=== PATIENT | male | born 1955 | race Caucasian/White ===

== ENCOUNTER 2016-11-09 10:17 | Inpatient (IN) | payer MEDICAID ==
[~2016-11-09] VITALS: Ht 177.8 cm; Wt 91.4 kg
[~2016-11-09 10:17] MED LIST: ALLO300T PO; AMLO10TA2 PO; ASPI-621 PO; ATOR80TA75 PO; BLOOD THINNER; ETOMIDATE 20 MG/10 ML ONE; HYDR-3138 PO; METO25TA35 PO; MIDAZOLAM 1 MG/ML, 5ML ONE; PROB500T22 PO; PROPOFOL 10 MG/ML, 100ML IV ONE; SERT50TA5 PO; SUCCINYLCHOLINE 20 MG/ML, 10ML ONE; TICA90TA PO
[2016-11-09] MEDS ORDERED: SODIUM CHLORIDE 0.9% 1,000ML IVBOLUS ONE (10:30)
[2016-11-09] MEDS ORDERED: VANCOMYCIN PER PHARMACY MC ONE (10:30)
[2016-11-09] MEDS ORDERED: [UNRECOGNIZED DRUG - REMARK] MC SCH (10:30)
[2016-11-09] MEDS ORDERED: FENTANYL PF 100 MCG/2ML ONE (10:52)
[2016-11-09] MEDS ORDERED: PIPERACILLIN/TAZO/PMX 4.5GM 100 ML IVPB ONE (11:00)
[2016-11-09] MEDS ORDERED: PROPOFOL 100 ML IV PRN (11:00)
[2016-11-09] MEDS ORDERED: FENTANYL PF 100 MCG/2ML IV ONE (11:00)
[2016-11-09] MEDS: MIDAZOLAM 1 MG/ML, 2ML IVPush PRN ×2 (11:22→12:00)
[2016-11-09] MEDS ORDERED: NOREPINEPHRINE 4 MG in SODIUM CHLORIDE 0.9% 246 ML IV PRN ×2 (11:30→17:00)
[2016-11-09] MEDS ORDERED: ACETAMINOPHEN 650 MG SUPP PR ONE (11:30)
[2016-11-09] MEDS ORDERED: ACETAMINOPHEN 650 MG SUPP ONE (11:48)
[2016-11-09 12:00] LABS: ABG COLLECTION SITE RIGHT RADIAL; COLLATERAL CIRCULATION TESTING NORMAL
[2016-11-09] MEDS ORDERED: PHARMACOKINETIC CONSULTATION MC ONE (12:00)
[2016-11-09] MEDS ORDERED: methylPREDNISolone SOD SUCC 125 MG/2 ML IVPush SCH (12:00)
[2016-11-09] MEDS ORDERED: PHARMACOKINETIC MONITORING MC PRN (12:00)
[2016-11-09 12:01] LABS: FIO2 100 %
[2016-11-09] MEDS ORDERED: VANCOMYCIN 1,600 MG in SODIUM CHLORIDE 0.9% 250 ML IV ONE (12:30)
[2016-11-09 12:37] LABS: ASPARTATE AMINO TRANSFERASE 64 U/L (15-37); BLOOD UREA NITROGEN 44 mg/dL (7-18)
[2016-11-09 12:42] LABS: IS PT STATUS REG ER OR PRE ER? YES
[2016-11-09] MEDS ORDERED: SENNA/DOCUSATE TABLET NG PRN (13:00)
[2016-11-09] MEDS ORDERED: LIDOCAINE-MPF 1%, 2ML ENDO PRN (13:00)
[2016-11-09] MEDS ORDERED: LACTULOSE 20 GM/30 ML UDC NG PRN (13:00)
[2016-11-09] MEDS ORDERED: BISACODYL 10 MG SUPP PR PRN ×2 (13:00→14:00)
[2016-11-09] MEDS ORDERED: SENNOSIDES 8.8 MG/5 ML ORAL SOL NG PRN (13:00)
[2016-11-09] MEDS ORDERED: PHARMACY MAY ADJ FOR RENAL FX MC SCH (13:00)
[2016-11-09 13:12] LABS: DIFF TOTAL CELLS COUNTED 100 CELL DIFF
[2016-11-09 13:26] LABS: ANISOCYTOSIS 2+; VERIFY COUNTS? YES
[2016-11-09 13:27] LABS: POLYCHROMASIA 1+
[2016-11-09 13:28] LABS: LARGE PLATELETS 1+; MICROCYTOSIS 1+
[2016-11-09 13:29] LABS: OVALOCYTES 1+; POIKILOCYTOSIS 1+
[2016-11-09] MEDS ORDERED: VASOPRESSIN 100 UNIT in SODIUM CHLORIDE 0.9% 495 ML IV PRN (14:00)
[2016-11-09] MEDS ORDERED: VANCOMYCIN PER PHARMACY MC PRN (14:00)
[2016-11-09] MEDS ORDERED: POLYETHYLENE GLYCOL 17 GM PACKET PO PRN (14:00)
[2016-11-09 14:14] LABS: ABG COLLECTION SITE RIGHT RADIAL; COLLATERAL CIRCULATION TESTING NORMAL
[2016-11-09 14:15] LABS: FIO2 100 %
[2016-11-09] MEDS: SODIUM CHLORIDE 0.9% 1,000 ML IV SCH (14:45)
[2016-11-09] MEDS: FAMOTIDINE 20 MG/2 ML IV SCH (14:45)
[2016-11-09] MEDS: PROPOFOL 100 ML IV PRN ×2 (14:45→17:44)
[2016-11-09] MEDS ORDERED: PIPERACILLIN/TAZO/PMX 3.375GM 50 ML IV SCH ×2 (15:00→17:00)
[2016-11-09] MEDS: FENTANYL PF 2,500 MCG in SODIUM CHLORIDE 0.9% 200 ML IV PRN (15:41)
[2016-11-09 17:17] LABS: DAU SCREEN DISCLAIMER
[2016-11-09 18:13] LABS: ABG COLLECTION SITE RIGHT RADIAL; COLLATERAL CIRCULATION TESTING NORMAL
[2016-11-09 18:24] LABS: IS PT STATUS REG ER OR PRE ER? NO
[2016-11-09] MEDS ORDERED: HEPARIN 25,000 UNITS/500ML PMX 500 ML ONE (18:41)
[2016-11-09] MEDS ORDERED: SODIUM BICARBONATE 8.4% 150 MEQ in DEXTROSE 5% 1,000 ML IV SCH (19:00)
[2016-11-09] MEDS ORDERED: HEPARIN 5,000 UNITS/ML, 1ML IV ONE (19:30)
[2016-11-09] MEDS ORDERED: DEXTROSE 5% IV SCH (20:30)
[2016-11-09] MEDS ORDERED: SODIUM ACETATE IV SCH (20:30)
[2016-11-09 20:54] VITALS: BP 79/57
[2016-11-09] MEDS: SODIUM ACETATE 150 MEQ in DEXTROSE 5% 1,000 ML IV SCH (21:09)
[2016-11-09] MEDS: MEROPENEM 1 GM in SODIUM CHLORIDE 0.9% 100 ML IV SCH (21:09)
[2016-11-09] MEDS: ATORVASTATIN 80 MG TABLET PO SCH (21:10)
[2016-11-09 21:12] VITALS: BP 84/63
[2016-11-09] MEDS: HYDROCORTISONE 100 MG INJ. IVPush SCH (21:13)
[2016-11-09] MEDS: ALBUTEROL/IPRATROPIUM 2.5MG/0.5MG, 3 ML NPPB SCH (21:18)
[2016-11-09] MEDS: NOREPINEPHRINE 8 MG in SODIUM CHLORIDE 0.9% 246 ML IV PRN (22:05)
[2016-11-09 22:13] VITALS: BP 80/59
[2016-11-09] MEDS: HEPARIN 25,000 UNITS/500ML PMX 500 ML IV PRN (23:13)
[2016-11-10 01:05] LABS: IS PT STATUS REG ER OR PRE ER? NO
[2016-11-10] MEDS: ALBUTEROL/IPRATROPIUM 2.5MG/0.5MG, 3 ML NPPB SCH ×6 (01:30→21:30)
[2016-11-10] MEDS: SODIUM CHLORIDE 0.9% 1,000 ML IV SCH ×2 (01:42→16:30)
[2016-11-10] MEDS: PROPOFOL 100 ML IV PRN ×3 (02:18→16:22)
[2016-11-10] MEDS: HYDROCORTISONE 100 MG INJ. IVPush SCH ×4 (02:21→20:48)
[2016-11-10 04:00] VITALS: BP 95/59
[2016-11-10] MEDS: SODIUM ACETATE 150 MEQ in DEXTROSE 5% 1,000 ML IV SCH ×3 (04:31→19:09)
[2016-11-10 05:30] LABS: ABG COLLECTION SITE RIGHT RADIAL; COLLATERAL CIRCULATION TESTING NORMAL
[2016-11-10 05:39] LABS: ASPARTATE AMINO TRANSFERASE 70 U/L (15-37); BLOOD UREA NITROGEN 34 mg/dL (7-18)
[2016-11-10] MEDS: NOREPINEPHRINE 8 MG in SODIUM CHLORIDE 0.9% 246 ML IV PRN ×2 (06:06→17:44)
[2016-11-10 06:19] LABS: IS PT STATUS REG ER OR PRE ER? NO
[2016-11-10 06:22] VITALS: BP 95/59
[2016-11-10 06:41] LABS: DIFF TOTAL CELLS COUNTED 100 CELL DIFF
[2016-11-10] MEDS: HEPARIN 5,000 UNITS/ML, 1ML IV PRN ×2 (06:46→22:04)
[2016-11-10 06:49] LABS: VERIFY COUNTS? YES
[2016-11-10 06:50] LABS: ANISOCYTOSIS 2+; MICROCYTOSIS 1+; POLYCHROMASIA 1+
[2016-11-10 06:51] LABS: OVALOCYTES 1+; POIKILOCYTOSIS 1+
[2016-11-10] MEDS: MEROPENEM 1 GM in SODIUM CHLORIDE 0.9% 100 ML IV SCH ×3 (07:47→22:53)
[2016-11-10] MEDS ORDERED: ASPIRIN 300 MG SUPP PR SCH (09:00)
[2016-11-10] MEDS: FAMOTIDINE 20 MG/2 ML IV SCH (09:50)
[2016-11-10] MEDS: INSULIN ASPART 100 UNITS/ML, 3ML PEN MEDIUM DOSE SS SQ-INSULIN SCH ×3 (10:05→20:49)
[2016-11-10] MEDS: VANCOMYCIN 1,600 MG in SODIUM CHLORIDE 0.9% 250 ML IV SCH (12:52)
[2016-11-10] MEDS: ATORVASTATIN 80 MG TABLET PO SCH (20:48)
[2016-11-10] MEDS: HEPARIN 25,000 UNITS/500ML PMX 500 ML IV PRN (22:06)
[2016-11-10] MEDS: FENTANYL PF 2,500 MCG in SODIUM CHLORIDE 0.9% 200 ML IV PRN (23:43)
[2016-11-11] MEDS: PROPOFOL 100 ML IV PRN (00:50)
[2016-11-11] MEDS: ALBUTEROL/IPRATROPIUM 2.5MG/0.5MG, 3 ML NPPB SCH ×6 (01:30→22:25)
[2016-11-11] MEDS: SODIUM ACETATE 150 MEQ in DEXTROSE 5% 1,000 ML IV SCH (01:59)
[2016-11-11] MEDS: HYDROCORTISONE 100 MG INJ. IVPush SCH ×4 (02:30→20:57)
[2016-11-11] MEDS ORDERED: NOREPINEPHRINE 8 MG in SODIUM CHLORIDE 0.9% 242 ML IV PRN (04:00)
[2016-11-11] MEDS: INSULIN ASPART 100 UNITS/ML, 3ML PEN MEDIUM DOSE SS SQ-INSULIN SCH ×4 (04:20→20:51)
[2016-11-11 04:50] LABS: ABG COLLECTION SITE RIGHT RADIAL; COLLATERAL CIRCULATION TESTING NORMAL
[2016-11-11 04:58] LABS: BLOOD UREA NITROGEN 21 mg/dL (7-18)
[2016-11-11 05:58] LABS: DIFF TOTAL CELLS COUNTED 100 CELL DIFF
[2016-11-11 06:00] VITALS: BP 98/49
[2016-11-11 06:03] LABS: VERIFY COUNTS? YES
[2016-11-11 06:04] LABS: ANISOCYTOSIS 2+; OVALOCYTES 1+
[2016-11-11 06:05] LABS: MICROCYTOSIS 1+; POLYCHROMASIA 1+
[2016-11-11 06:07] LABS: ECHINOCYTES 1+; POIKILOCYTOSIS 1+
[2016-11-11] MEDS: MEROPENEM 1 GM in SODIUM CHLORIDE 0.9% 100 ML IV SCH ×3 (06:10→23:31)
[2016-11-11] MEDS: HEPARIN 5,000 UNITS/ML, 1ML IV PRN ×2 (06:18→17:29)
[2016-11-11] MEDS ORDERED: POTASSIUM CHLORIDE 20 MEQ TAB.ER.PRT PO ONE (08:30)
[2016-11-11] MEDS ORDERED: FUROSEMIDE 20 MG/2 ML IV ONE (08:30)
[2016-11-11] MEDS: FAMOTIDINE 20 MG/2 ML IV SCH ×2 (09:58→20:57)
[2016-11-11] MEDS: ASPIRIN 81 MG TABLET CHEW NG SCH (10:01)
[2016-11-11] MEDS ORDERED: POTASSIUM CHLORIDE 20 MEQ PACKET PO ONE (11:00)
[2016-11-11] MEDS: VANCOMYCIN 1,600 MG in SODIUM CHLORIDE 0.9% 250 ML IV SCH (12:34)
[2016-11-11 13:48] LABS: HIT LOT CART23835/KIT23844
[2016-11-11 16:30] LABS: HIT RESULT NEGATIVE (NEGATIVE)
[2016-11-11 16:34] LABS: HIT OBC PASS
[2016-11-11] MEDS: HEPARIN 25,000 UNITS/500ML PMX 500 ML IV PRN (17:28)
[2016-11-11 20:52] LABS: ABG COLLECTION SITE RIGHT RADIAL; COLLATERAL CIRCULATION TESTING NORMAL
[2016-11-11] MEDS: ATORVASTATIN 80 MG TABLET PO SCH (20:57)
[2016-11-12] MEDS: ALBUTEROL/IPRATROPIUM 2.5MG/0.5MG, 3 ML NPPB SCH ×5 (02:12→19:12)
[2016-11-12] MEDS: HYDROCORTISONE 100 MG INJ. IVPush SCH ×4 (02:49→20:27)
[2016-11-12] MEDS: INSULIN ASPART 100 UNITS/ML, 3ML PEN MEDIUM DOSE SS SQ-INSULIN SCH ×4 (02:49→20:26)
[2016-11-12 04:00] VITALS: BP 105/68
[2016-11-12 04:32] LABS: ABG COLLECTION SITE LEFT RADIAL; COLLATERAL CIRCULATION TESTING NORMAL
[2016-11-12 06:21] LABS: ASPARTATE AMINO TRANSFERASE 37 U/L (15-37); BLOOD UREA NITROGEN 28 mg/dL (7-18)
[2016-11-12] MEDS: MEROPENEM 1 GM in SODIUM CHLORIDE 0.9% 100 ML IV SCH ×3 (06:29→23:11)
[2016-11-12 06:40] LABS: DIFF TOTAL CELLS COUNTED 100 CELL DIFF
[2016-11-12 06:41] LABS: VERIFY COUNTS? YES
[2016-11-12 06:42] LABS: ANISOCYTOSIS 2+
[2016-11-12 06:43] LABS: MICROCYTOSIS 1+; OVALOCYTES 1+; POIKILOCYTOSIS 1+
[2016-11-12] MEDS: FAMOTIDINE 20 MG/2 ML IV SCH ×2 (07:56→20:27)
[2016-11-12] MEDS: ASPIRIN 81 MG TABLET CHEW NG SCH (07:56)
[2016-11-12] MEDS: ENOXAPARIN 40 MG/0.4 ML SQ SCH (10:05)
[2016-11-12] MEDS: POTASSIUM CHLORIDE 20 MEQ PACKET PO SCH ×3 (10:05→17:58)
[2016-11-12] MEDS ORDERED: FUROSEMIDE 20 MG/2 ML IV ONE ×2 (12:00→16:30)
[2016-11-12] MEDS: VANCOMYCIN 1,600 MG in SODIUM CHLORIDE 0.9% 250 ML IV SCH (12:30)
[2016-11-12 16:27] VITALS: BP 117/67
[2016-11-12 16:45] VITALS: BP 125/78
[2016-11-12 17:00] VITALS: BP 112/67
[2016-11-12 18:00] VITALS: BP 116/70
[2016-11-12 19:21] VITALS: BP 119/84
[2016-11-12] MEDS: ATORVASTATIN 80 MG TABLET PO SCH (20:28)
[2016-11-13] MEDS: HYDROCORTISONE 100 MG INJ. IVPush SCH ×3 (03:00→15:14)
[2016-11-13] MEDS: INSULIN ASPART 100 UNITS/ML, 3ML PEN MEDIUM DOSE SS SQ-INSULIN SCH ×3 (03:03→15:00)
[2016-11-13 04:00] VITALS: BP 118/83
[2016-11-13 04:32] LABS: ABG COLLECTION SITE RIGHT RADIAL; COLLATERAL CIRCULATION TESTING NORMAL
[2016-11-13 05:27] LABS: BLOOD UREA NITROGEN 40 mg/dL (7-18)
[2016-11-13 05:48] LABS: DIFF TOTAL CELLS COUNTED 100 CELL DIFF
[2016-11-13 05:52] LABS: ANISOCYTOSIS 1+; VERIFY COUNTS? YES
[2016-11-13 05:53] LABS: OVALOCYTES 1+; POIKILOCYTOSIS 1+; POLYCHROMASIA 1+
[2016-11-13 05:55] LABS: MICROCYTOSIS 1+
[2016-11-13] MEDS: MEROPENEM 1 GM in SODIUM CHLORIDE 0.9% 100 ML IV SCH ×2 (06:54→15:14)
[2016-11-13] MEDS: ALBUTEROL/IPRATROPIUM 2.5MG/0.5MG, 3 ML NPPB SCH ×3 (07:00→14:30)
[2016-11-13] MEDS ORDERED: PANTOPRAZOLE 40 MG IV IVPush SCH (08:34)
[2016-11-13] MEDS ORDERED: POTASSIUM CHLORIDE PMX 100 ML IV ONE (09:00)
[2016-11-13] MEDS ORDERED: FUROSEMIDE 100 MG/10 ML IV ONE (09:30)
[2016-11-13] MEDS ORDERED: POTASSIUM CHLORIDE 20 MEQ TAB.ER.PRT PO ONE (09:30)
[2016-11-13] MEDS: ASPIRIN 81 MG TABLET CHEW NG SCH (09:37)
[2016-11-13] MEDS: ENOXAPARIN 40 MG/0.4 ML SQ SCH (09:37)
[2016-11-13] MEDS: CARVEDILOL 3.125 MG TABLET PO SCH ×2 (10:00→17:45)
[2016-11-13] MEDS ORDERED: MAGNESIUM SULFATE PMX 2GM/50ML 50 ML IV ONE (10:00)
[2016-11-13] MEDS ORDERED: FUROSEMIDE 40 MG/4 ML IV ONE (16:00)
[2016-11-13] MEDS ORDERED: POTASSIUM CHLORIDE 20 MEQ TAB.ER.PRT PO SCH (21:00)
== END 2016-11-13 21:27 | disposition hospice, home (50) | DRG 871 ==
LOC: ED 11:26 → EDIP 11:30 → CCU 13:12
PROVIDERS: ADMIT Hospitalist; ATTEND Hospitalist
PROC: 02HV33Z Insertion of Infusion Device into Superior Vena Cava, Percutaneous Approach (ICD-10-PCS; principal; 2016-11-09)
PROC: B548ZZA Ultrasonography of Superior Vena Cava, Guidance (ICD-10-PCS; 2016-11-09)
PROC: 0BH17EZ Insertion of Endotracheal Airway into Trachea, Via Natural or Artificial Opening (ICD-10-PCS; 2016-11-09)
PROC: 5A1945Z Respiratory Ventilation, 24-96 Consecutive Hours (ICD-10-PCS; 2016-11-09)
PROC: 30233N1 Transfusion of Nonautologous Red Blood Cells into Peripheral Vein, Percutaneous Approach (ICD-10-PCS; 2016-11-09)
DX: A41.9 Sepsis, unspecified organism (principal); R65.21 Severe sepsis with septic shock; J96.00 Acute respiratory failure, unspecified whether with hypoxia or hypercapnia; E43 Unspecified severe protein-calorie malnutrition; I50.43 Acute on chronic combined systolic (congestive) and diastolic (congestive) heart failure; I21.4 Non-ST elevation (NSTEMI) myocardial infarction; J18.9 Pneumonia, unspecified organism; N17.0 Acute kidney failure with tubular necrosis; C79.51 Secondary malignant neoplasm of bone; E87.0 Hyperosmolality and hypernatremia; J44.0 Chronic obstructive pulmonary disease with (acute) lower respiratory infection; Z99.11 Dependence on respirator [ventilator] status; I42.9 Cardiomyopathy, unspecified; I11.0 Hypertensive heart disease with heart failure; D64.9 Anemia, unspecified; E03.9 Hypothyroidism, unspecified; E66.9 Obesity, unspecified; G47.33 Obstructive sleep apnea (adult) (pediatric); I25.10 Atherosclerotic heart disease of native coronary artery without angina pectoris; J44.9 Chronic obstructive pulmonary disease, unspecified; M10.9 Gout, unspecified; D69.6 Thrombocytopenia, unspecified; Z66 Do not resuscitate; F32.9 Major depressive disorder, single episode, unspecified; F17.210 Nicotine dependence, cigarettes, uncomplicated; E87.6 Hypokalemia; B95.3 Streptococcus pneumoniae as the cause of diseases classified elsewhere; Z51.5 Encounter for palliative care; C61 Malignant neoplasm of prostate; Z16.11 Resistance to penicillins; Z87.01 Personal history of pneumonia (recurrent); Z95.1 Presence of aortocoronary bypass graft; Z79.02 Long term (current) use of antithrombotics/antiplatelets; Z79.899 Other long term (current) drug therapy; Z79.82 Long term (current) use of aspirin; Z95.5 Presence of coronary angioplasty implant and graft; Z68.28 Body mass index [BMI] 28.0-28.9, adult
CPT/HCPCS: 31500; 36415; 36556; 36600; 71010; 80048; 80053; 80061; 80307; 81001; 82533; 82803; 82962; 83605; 83735; 84145; 84478; 84484; 85025; 85520; 86022; 86850; 86900; 86923; 87040; 87070; 87077; 87081; 87184; 87205; 87324; 93005; 93306; 93970; 94002; 94003; 94150; 94640; 96361; 96374; 99292; J1644; J1650; J1815; J1940; J2185; J2250; J2543; J2704; J3010; J3370; J3480; J7070; J7620; C9113; J0330; J1720; J3475; J7030; J7040; J7050; P9016; S0028